=== PATIENT | female | born 1970 | race Caucasian/White ===

== ENCOUNTER 2023-01-02 10:05 | Day surgery (SDC) | payer OTHER ==
[~2023-01-02] VITALS: Ht 167.6 cm; Wt 73.9 kg
[2023-01-02] MEDS ORDERED: LIDOCAINE 2% 100 MG/5 ML UJET TP ONE (10:56)
[2023-01-02] MEDS ORDERED: fentaNYL citrate 0.05 MG/ML VIAL ONE (10:56)
[2023-01-02] MEDS ORDERED: fentaNYL citrate 0.05 MG/ML VIAL IVP ONE (12:45)
== END 2023-01-02 12:18 | disposition home or self-care (01) ==
LOC: MDS 10:05 → MMU 10:05 → MDS 12:18
PROVIDERS: ATTEND Internal Medicine Gastroenterology
DX: Z12.11 Encounter for screening for malignant neoplasm of colon (principal); E11.9 Type 2 diabetes mellitus without complications; E05.90 Thyrotoxicosis, unspecified without thyrotoxic crisis or storm; Z90.710 Acquired absence of both cervix and uterus; Z79.899 Other long term (current) drug therapy; Z20.822 Contact with and (suspected) exposure to COVID-19; Z98.890 Other specified postprocedural states
CPT/HCPCS: 45378; 87426; J3010